=== PATIENT | male | born 1955 | race Caucasian/White ===

== ENCOUNTER 2016-09-20 16:46 | Inpatient (IN) | payer OTHER ==
[~2016-09-20] VITALS: Ht 170.2 cm; Wt 82.2 kg
[~2016-09-20 16:46] MED LIST: CALC500T67 PO; CICL160A INH; DOCU100C31 PO; DPKEC250 PO; DPKEC500 PO; FERR325T18 PO; IPRASOL4 NEB; MELA3TAB PO; NORT50CA PO; PRLSR20 PO; RISP2TAB3 PO
[2016-09-20] MEDS ORDERED: ACET-1256 PO (17:53)
[2016-09-20] MEDS ORDERED: SODIUM CHLORIDE 0.9% 500ML 500 ML IV STA (17:54)
--- NOTE | 2016-09-20 17:54 | DIAGNOSTIC IMAGING REPORT ---
CHEST ONE VIEW PORTABLE CLINICAL HISTORY: Chest Pain dyspnea COMPARISON STUDY: 12/30/2015 FINDINGS: Mild emphysematous change. No focal infiltrate. No evidence for cardiac enlargement. IMPRESSION: Mild emphysematous change. No acute process. Electronically signed by: Jakob Lang M.D. 09/20/2016 5:52 PM Dictated Date/Time: 09/20/2016 5:52 PM
[2016-09-20] MEDS ORDERED: CALC200T PO (18:01)
[2016-09-20 18:32] LABS: BASO % 0.1 %; BASO ABS # 0.01 K/uL (0-0.2); COMPLETE YES; EOS % 0.4 %; HEMATOCRIT 42.2 % (42-52); IG% 0.1 %; LYMPH % 14.7 %; MEAN CELL VOLUME 90.8 fL (80-100); MEAN CORPUSCULAR HEMOGLOBIN 31.2 pg (25-34); MEAN CORPUSCULAR HGB CONC 34.4 g/dl (32-36); MEAN PLATELET VOLUME 10.1 fL (7.4-10.4); NEUT % 76.7 %; PLATELET COUNT 157 K/uL (130-400); RED BLOOD COUNT 4.65 M/uL (4.7-6.1); WHITE BLOOD COUNT 7.48 K/uL (4.8-10.8)
[2016-09-20 18:42] LABS: BLOOD UREA NITROGEN 9 mg/dl (7-18); BUN/CREATININE RATIO 16.2 (10-20); CARBON DIOXIDE 33 mmol/L (21-32); CHLORIDE 94 mmol/L (98-107); CREATININE 0.55 mg/dl (0.60-1.40); GLUCOSE 88 mg/dl (70-99); POTASSIUM 5.4 mmol/L (3.5-5.1); SODIUM 133 mmol/L (136-145)
[2016-09-20 18:46] LABS: CKMB/CK RATIO 2.7 (0-3.0)
[2016-09-20] MEDS ORDERED: DOXYCYCLINE IV 100 MG in DEXTROSE 5% 100ML 100 ML IV STA (18:57)
[2016-09-20] MEDS ORDERED: LORAZEPAM 2 MG/ML 1 ML VIAL IV PRN (19:15)
[2016-09-20] MEDS ORDERED: ACETAMINOPHEN 325 MG TAB PO PRN ×2 (19:15)
[2016-09-20] MEDS ORDERED: ONDANSETRON INJ 2 MG/ML 2 ML VIAL IV PRN ×2 (19:15)
[2016-09-20] MEDS ORDERED: ZOLPIDEM TARTRATE 5 MG TAB PO PRN ×2 (19:15)
[2016-09-20] MEDS ORDERED: ALUMINUM/MAGNESIUM/SIMETH (MAALOX MAX) 30 ML UDC PO PRN (19:15)
[2016-09-20] MEDS ORDERED: DiphenhydrAMINE HCL 50 MG/ML VIAL IV PRN (19:15)
[2016-09-20] MEDS ORDERED: MAGNESIUM HYDROXIDE SUSP 30 ML UDC PO PRN (19:15)
[2016-09-20] MEDS ORDERED: PROMETHAZINE HCL INJ 12.5 MG in SODIUM CHLORIDE 0.9% 50ML 50 ML IV PRN (19:15)
--- NOTE | 2016-09-20 19:24 | History and Physical ---
History & Physical Date & Time of Service: Sep 20, 2016 at 19:15 Chief Complaint: Sob, Dizzy Primary Care Physician: Akilah SCHUSTER History of Present Illness Source: patient The patient is [facility] 61[facility] due to shortness of breath and dizziness. When EMS arrived at the senior care, his pulse ox was in the mid 70s, and en route received nebulizer treatment and was given Solu-Medrol. By the time he arrived in the emergency department his pulse ox was in the mid 90s his breathing is more comfortable at that time. He has not had any fevers or chills, he does report some chest congestion, but is not able to bring it up. He denies any palpitations. Past Medical/Surgical History Medical Problems: (1) Asthma Status: Chronic (2) Bipolar disorder Status: Chronic (3) COPD (chronic obstructive pulmonary disease) Status: Chronic (4) Seizures Status: Chronic Family History No significant family history Social History Smoking Status: Current Every Day Smoker Smokeless Tobacco Use: Yes Alcohol Use: none Drug Use: none Housing status: other Immunizations History of Influenza Vaccine: Unknown History of Tetanus Vaccine?: utd History of Pneumococcal: Unknown History of Hepatitis B Vaccine: Unknown Multi-Drug Resistant Organisms History of MDRO: No Allergies Coded Allergies: No Known Allergies (Verified , 10/08/08) Home Medications Scheduled Acetaminophen (Tylenol), 1,000 MG PO TID Calcium Carbonate-Vitamin D (Oscal 500/200 D-3), 1 TAB PO BID Ciclesonide (Alvesco), 1 PUFF INH BID Divalproex Sodium (Divalproex Sodium Dr), 1,000 MG PO BID Divalproex Sodium (Divalproex Sodium Dr), 250 MG PO HS Docusate Sodium (Docusate Sodium), 1 CAP PO BID Ferrous Gluconate (Ferrous Gluconate), 324 MG PO BID Nortriptyline (Pamelor), 50 MG PO HS Omeprazole (Prilosec), 20 MG PO DAILY Risperidone (Risperdal), 2 MG PO HS Scheduled PRN Ipratropium-Albuterol (Duoneb), 1 TREATMENT NEB QID PRN for SOB/Wheezing Review of Systems The patient denies chest pain, palpitations, lower extremity swelling, vision change, hearing change, sore throat, fevers, chills, sweats, weight change, fatigue, nausea, vomiting, abdominal pain, pelvic pain, blood in urine or stool , dysuria, urinary frequency or urgency, headache, memory loss, rash, abnormal bruising or bleeding, imbalance, focal or generalized weakness, numbness or tingling in arms or legs, arthralgias or myalgias, back or neck pain, night sweats, or allergy symptoms. The review of systems is otherwise negative other than for that already noted above, and at least 10 systems have been reviewed. Physical Exam Vital Signs Date Time Temp Pulse Resp B/P Pulse Ox O2 Delivery O2 Flow Rate FiO2 09/20/16 16:58 Nasal Cannula 4.0 09/20/16 16:57 73 09/20/16 16:53 37.2 72 26 122/77 90 Room Air 09/20/16 16:53 90 Room Air The patient is awake, well-developed and adequately nourished, alert and oriented 3, normocephalic and atraumatic, lying in bed and in no acute distress. HEENT--PERRL, EOMI, mucous membranes and oropharynx dry. Neck--supple, no JVD or bruits, thyroid normal, trachea midline, no adenopathy. Heart--normal S1 and S2, no extra beats, no murmurs, rubs or gallops. Lungs--few scattered rhonchi right greater than left, no respiratory distress, no accessory muscle use. Abdomen--normal bowel sounds and soft, nontender and nondistended, no hernias or masses, no organomegaly. Extremities--no cyanosis, clubbing or edema. There are good distal pulses b/l. Dermatologic--normal skin turgor, normal color, warm and dry, no abnormal lymph nodes, no rash. Neurologic--cranial nerves II through XII grossly intact, motor and sensory examination normal. Rheumatologic--normal range of motion, nontender, muscles and joints. Psychiatric--normal affect. Diagnostics Laboratory Results Results Past 24 Hours Test 09/20/16 17:25 09/20/16 17:29 Range/Units White Blood Count 7.48 4.8-10.8 K/uL Red Blood Count 4.65 4.7-6.1 M/uL Hemoglobin 14.5 14.0-18.0 g/dL Hematocrit 42.2 42-52 % Mean Corpuscular Volume 90.8 80-100 fL Mean Corpuscular Hemoglobin 31.2 25-34 pg Mean Corpuscular Hemoglobin Concent 34.4 32-36 g/dl Platelet Count 157 130-400 K/uL Mean Platelet Volume 10.1 7.4-10.4 fL Neutrophils (%) (Auto) 76.7 % Lymphocytes (%) (Auto) 14.7 % Monocytes (%) (Auto) 8.0 % Eosinophils (%) (Auto) 0.4 % Basophils (%) (Auto) 0.1 % Neutrophils # (Auto) 5.73 1.4-6.5 K/uL Lymphocytes # (Auto) 1.10 1.2-3.4 K/uL Monocytes # (Auto) 0.60 0.11-0.59 K/uL Eosinophils # (Auto) 0.03 0-0.5 K/uL Basophils # (Auto) 0.01 0-0.2 K/uL RDW Standard Deviation 48.7 36.4-46.3 fL RDW Coefficient of Variation 14.7 11.5-14.5 % Immature Granulocyte % (Auto) 0.1 % Immature Granulocyte # (Auto) 0.01 0.00-0.02 K/uL Sodium Level 133 136-145 mmol/L Potassium Level 5.4 3.5-5.1 mmol/L Chloride Level 94 98-107 mmol/L Carbon Dioxide Level 33 21-32 mmol/L Anion Gap 6.0 3-11 mmol/L Blood Urea Nitrogen 9 7-18 mg/dl Creatinine 0.55 0.60-1.40 mg/dl Est Creatinine Clear Calc Drug Dose 145.1 ml/min Estimated GFR () 130.4 Estimated GFR (Non- 112.5 BUN/Creatinine Ratio 16.2 10-20 Random Glucose 88 70-99 mg/dl Calcium Level 9.0 8.5-10.1 mg/dl Total Creatine Kinase 62 39-308 U/L Creatine Kinase MB 1.7 0.5-3.6 ng/ml Creatine Kinase MB Ratio 2.7 0-3.0 Troponin I < 0.015 0-0.045 ng/ml Valproic Acid (Depakene) Level 96 50-100 mcg/ml Bedside Lactic Acid Venous 1.79 0.90-1.70 mmol/L Microbiology Results 2/20/17 Blood Culture, Received Pending 09/20/16 Blood Culture, Received Pending Diagnostic Radiology Patient Name: FER MOREAU [id number] Unit Number: [id number] Dictated: 09/20/161751 Transcribed: 09/20/161751 MS Printed Date/Time: [~ rep prt dt]/[~ rep prt tm] [~ rep ct labl] - [~ rep ct ivnm] [facility] Radiology Department [place], [place] [id number] Dictated: 09/20/161751 Transcribed: 09/20/161751 MS Printed Date/Time: [~ rep prt dt]/[~ rep prt tm] [~ rep ct labl] - [~ rep ct ivnm] [~ rep ct add3]] CHEST ONE VIEW PORTABLE CLINICAL HISTORY: Chest Pain dyspnea COMPARISON STUDY: 12/30/2015 FINDINGS: Mild emphysematous change. No focal infiltrate. No evidence for cardiac enlargement. IMPRESSION: Mild emphysematous change. No acute process. Electronically signed by: Jakob Lang M.D. 09/20/2016 5:52 PM Dictated Date/Time: 09/20/2016 5:52 PM The status of this report is Signed. Draft = Not yet reviewed or approved by Radiologist. Signed = Reviewed and approved by Radiologist. <AttendingPhy></AttendingPhy> <FamilyPhy>Akilah SCHUSTER</FamilyPhy> <PrimaryPhy> Akilah SCHUSTER</PrimaryPhy> <UnitNumber>[id number]</UnitNumber> <VisitNumber> [id number]</VisitNumber> <PatientName>FER MOREAU [id number]</PatientName> < DateOfBirth>1955</DateOfBirth> <Location>C.EDB</Location> <ServiceDate></ServiceDate> <MNE>ESINDI</MNE> <OrderingPhy>Andi Osborn M.D.</ OrderingPhy> <OrderingPhyMNE>f rep ord mne</OrderingPhyMNE> <DictatingPhyMNE> f rep dict mne</DictatingPhyMNE> <CCListMNE>f rep ct mne</CCListMNE> < AdmittingPhyMNE>f pt admit dr lopes</AdmittingPhyMNE> <AttendingPhyMNE>f pt attend dr lopes</AttendingPhyMNE> <ConsultingPhyMNE>f pt consult dr lopes</ConsultingPhyMNE> <FamilyPhyMNE>f pt fam dr lopes</FamilyPhyMNE> <OtherPhyMNE>f pt other dr lopes</OtherPhyMNE> < PrimaryPhyMNE>f pt prim care dr lopes</PrimaryPhyMNE> <ReferringPhyMNE>f pt referring dr lopes</ReferringPhyMNE> EKG EKG shows normal sinus rhythm at 66 bpm, no acute ST-T changes, and no change compared to 05/24/2014. Impression Assessment and Plan COPD exacerbation with hypoxia and lactic acidosis--patient be admitted to the telemetry unit. He'll be placed on Ceftriaxone 1 g IV daily, levofloxacin 500 mg IV every 24 hours, Solu-Medrol 40 mg IV every 8 hours, guaifenesin extended release 600 mg by mouth twice a day, nasal cannula 2 L of oxygen titrating to keep pulse ox greater than or equal to 92%. Seizure disorder--continue divalproex 1000 mg by mouth twice a day and 10 mg by mouth at bedtime. Bipolar disorder/insomnia--continue nortriptyline 50 mg by mouth at bedtime and Risperdal 2 mg by mouth at bedtime. GERD--change omeprazole 20 mg by mouth daily to pantoprazole 40 mg by mouth daily. Level of Care Telemetry Advanced Directives Existing Advance Directive: No Existing Living Will: No Existing Power of Store Group Manager: No Resuscitation Status FULL RESUSCITATION VTE Prophylaxis VTE Risk Assessment Done? Y/N: Yes Risk Level: Moderate Given or contraindicated: SCD's
[2016-09-20] MEDS ORDERED: CEFTRIAXONE SOD INJ 1 GM ADDVIAL ONE (19:34)
[2016-09-20] MEDS ORDERED: LEVAQUIN 500MG / 100ML D5W ONE (20:46)
[2016-09-20] MEDS ORDERED: LEVALBUTEROL/IPRATROPIUM NEB INH SCH ×2 (21:00)
[2016-09-20] MEDS ORDERED: DOCUSATE SODIUM 100 MG CAP PO SCH (21:00)
[2016-09-20 21:46] VITALS: BP 113/76; PULSE 79; TEMP 37; O2SAT 92; Ht 170.2 cm; Wt 82.2 kg
[2016-09-20] MEDS ORDERED: METHYLPREDNISOLONE IV 40 MG in SYRINGE 0 ML IV SCH (22:00)
--- NOTE | 2016-09-20 22:25 | EMERGENCY ROOM VISIT NOTE ---
History Report prepared by Ankita: Jeanette Umanzor Under the Supervision of: Dr. Andi Osborn M.D. First contact with patient: 16:50 Stated Complaint: SOB, DIZZY History of Present Illness The patient is a 61 year old male who presents to the Emergency Room with complaints of constant shortness of breath for the past week. The patient is a prisoner and guards were altered to his symptoms today. The patient was found to be at 76% on room air. EMS arrived and gave the patient a DuoNeb treatment as well as albuterol and Solu-Medrol. He is now in the high 90s on room air. The patient is a smoker. He also reports some dizziness. Source of History: patient, EMS Onset: 1 week ago Position: chest Symptom Intensity: O2 76% on room air Quality: other (SOB) Timing: constant Modifying Factors (Relieving): other (DuoNeb, Solu-Medrol, Albuterol) Review of Systems See HPI for pertinent positives & negatives. A total of 10 systems reviewed and were otherwise negative. Past Medical & Surgical Medical Problems: (1) Asthma (2) Bipolar disorder (3) COPD (chronic obstructive pulmonary disease) (4) COPD exacerbation (5) Seizures Family History No significant family history Social History Smoking Status: Current Every Day Smoker Alcohol Use: none Drug Use: none Housing Status: other (incarcerated) Occupation Status: other (incarcerated) Current/Historical Medications Scheduled Acetaminophen (Tylenol), 1,000 MG PO TID Calcium Carbonate-Vitamin D (Oscal 500/200 D-3), 1 TAB PO BID Ciclesonide (Alvesco), 1 PUFF INH BID Divalproex Sodium (Divalproex Sodium Dr), 1,000 MG PO BID Divalproex Sodium (Divalproex Sodium Dr), 250 MG PO HS Docusate Sodium (Docusate Sodium), 1 CAP PO BID Ferrous Gluconate (Ferrous Gluconate), 324 MG PO BID Nortriptyline (Pamelor), 50 MG PO HS Omeprazole (Prilosec), 20 MG PO DAILY Risperidone (Risperdal), 2 MG PO HS Scheduled PRN Ipratropium-Albuterol (Duoneb), 1 TREATMENT NEB QID PRN for SOB/Wheezing Allergies Coded Allergies: No Known Allergies (Verified , 10/08/08) Physical Exam Vital Signs Date Time Temp Pulse Resp B/P Pulse Ox O2 Delivery O2 Flow Rate FiO2 09/20/16 19:00 74 12 122/77 95 4.0 09/20/16 16:58 Nasal Cannula 4.0 09/20/16 16:57 73 09/20/16 16:53 37.2 72 26 122/77 90 Room Air 09/20/16 16:53 90 Room Air Physical Exam GENERAL: Patient is chronically unwell appearing and in no acute distress. HEENT: No acute trauma, normocephalic atraumatic, mucous membranes moist, no nasal congestion, no scleral icterus. NECK: No stridor, no adenopathy, no meningismus, trachea is midline. LUNGS: Crackles and decreased breath sounds throughout the right lobe, mild wheezing throughout the left. HEART: Regular rate and rhythm. No murmurs, rubs, gallops appreciated. ABDOMEN: Soft, nontender, bowel sounds positive, no masses appreciated, no peritonitis. BACK: No midline tenderness, no CVA tenderness EXTREMITIES: Normal motion all extremities, no cyanosis, no edema. NEUROLOGIC: Alert and oriented, no acute motor or sensory deficits, no focal weakness, cranial nerves grossly intact. SKIN: No rash, no jaundice, no diaphoresis. Medical Decision & Procedures ER Provider Diagnostic Interpretation: Radiology results and stated below per my review and radiologist interpretation: CHEST ONE VIEW PORTABLE CLINICAL HISTORY: Chest Pain dyspnea COMPARISON STUDY: 12/30/2015 FINDINGS: Mild emphysematous change. No focal infiltrate. No evidence for cardiac enlargement. IMPRESSION: Mild emphysematous change. No acute process. Electronically signed by: Jakob Lang M.D. 09/20/2016 5:52 PM Dictated Date/Time: 09/20/2016 5:52 PM Laboratory Results 09/20/16 17:25 Red Blood Count 4.65, Mean Corpuscular Volume 90.8, Mean Corpuscular Hemoglobin 31.2, Mean Corpuscular Hemoglobin Concent 34.4, Mean Platelet Volume 10.1, Neutrophils (%) (Auto) 76.7, Lymphocytes (%) (Auto) 14.7, Monocytes (%) (Auto) 8.0, Eosinophils (%) (Auto) 0.4, Basophils (%) (Auto) 0.1, Neutrophils # (Auto) 5.73, Lymphocytes # (Auto) 1.10, Monocytes # (Auto) 0.60, Eosinophils # (Auto) 0.03, Basophils # (Auto) 0.01 09/20/16 17:25 Test 09/20/16 17:25 09/20/16 17:29 White Blood Count 7.48 K/uL (4.8-10.8) Red Blood Count 4.65 M/uL (4.7-6.1) Hemoglobin 14.5 g/dL (14.0-18.0) Hematocrit 42.2 % (42-52) Mean Corpuscular Volume 90.8 fL (80-100) Mean Corpuscular Hemoglobin 31.2 pg (25-34) Mean Corpuscular Hemoglobin Concent 34.4 g/dl (32-36) Platelet Count 157 K/uL (130-400) Mean Platelet Volume 10.1 fL (7.4-10.4) Neutrophils (%) (Auto) 76.7 % Lymphocytes (%) (Auto) 14.7 % Monocytes (%) (Auto) 8.0 % Eosinophils (%) (Auto) 0.4 % Basophils (%) (Auto) 0.1 % Neutrophils # (Auto) 5.73 K/uL (1.4-6.5) Lymphocytes # (Auto) 1.10 K/uL (1.2-3.4) Monocytes # (Auto) 0.60 K/uL (0.11-0.59) Eosinophils # (Auto) 0.03 K/uL (0-0.5) Basophils # (Auto) 0.01 K/uL (0-0.2) RDW Standard Deviation 48.7 fL (36.4-46.3) RDW Coefficient of Variation 14.7 % (11.5-14.5) Immature Granulocyte % (Auto) 0.1 % Immature Granulocyte # (Auto) 0.01 K/uL (0.00-0.02) Anion Gap 6.0 mmol/L (3-11) Est Creatinine Clear Calc Drug Dose 145.1 ml/min Estimated GFR () 130.4 Estimated GFR (Non- 112.5 BUN/Creatinine Ratio 16.2 (10-20) Calcium Level 9.0 mg/dl (8.5-10.1) Total Creatine Kinase 62 U/L (39-308) Creatine Kinase MB 1.7 ng/ml (0.5-3.6) Creatine Kinase MB Ratio 2.7 (0-3.0) Troponin I < 0.015 ng/ml (0-0.045) Valproic Acid (Depakene) Level 96 mcg/ml (50-100) Bedside Lactic Acid Venous 1.79 mmol/L (0.90-1.70) Laboratory results as reviewed by me. Medications Administered Medications (Trade) Dose Ordered Sig/Padmini Route Start Time Stop Time Status Last Admin Dose Admin Sodium Chloride 500 ml @ 999 mls/hr Q31M STAT IV 09/20/16 17:54 09/20/16 18:24 DC 09/20/16 18:02 999 MLS/HR Doxycycline Hyclate/Dextrose (Vibramycin IV/ D5 100ml) 110 ml @ 50 mls/hr NOW STAT IV 09/20/16 18:57 09/20/16 21:08 DC 09/20/16 19:09 50 MLS/HR ECG Indication: SOB/dyspnea Rate (beats per minute): 66 Rhythm: normal sinus Findings: no acute ischemic change, no ectopy ED Course 1649: The patient was evaluated in room B5. A complete history and physical exam was performed. 1754: NSS 500 ml @ 999 mls/hr IV 1856: Doxycycline Hyclate 100 mg/Dextrose 110 ml @ 50 mls/hr IV 1923: I reassessed the patient at this time. He is resting comfortably. I discussed the results and treatment plan with the patient. I answered all pertaining questions that he had. He expressed understanding and verbalized agreement. 1930: I spoke with Dr. Willard. We discussed the patients results and treatment plan. The patient will be evaluated by the [facility] for further management. Medical Decision Differential: Infectious, Reactive Airway Disease, Pneumonia, Pneumothorax, COPD , CHF, ACS, Pulmonary Embolism, MSK, GI, Dissection, amongst other etiologies entertained. 61 yr old male arrives with acute shortness of breath from snf. Long history of COPD with periodic exacerbations and his exam is consistent with this. Initially after EMS nebs his O2 doing well on RA though after short while desaturating requiring 4 L NC to maintain sats. CXR clear and labs look OK. With worsening hypoxia and clearly poor lung exam will bring in for acute COPD exacerbation. No clear evidence of pneumonia thus will do IV doxy. With his history and exam I feel that PE and dissection are low likelihood. No evidence ACS. Consults Time Called: 1927 Consulting Physician: Dr. Willard Returned Call: [address] Willard. We discussed the patients results and treatment plan. The patient will be evaluated by the [facility] for further management. Impression Primary Impression: COPD exacerbation Additional Impression: Hypoxia Scribe Attestation The scribe's documentation has been prepared under my direction and personally reviewed by me in its entirety. I confirm that the note above accurately reflects all work, treatment, procedures, and medical decision making performed by me. Departure Information Dispostion Being Evaluated By Hospitalist Referrals Akilah SCHUSTER (PCP) Problem Qualifiers
[2016-09-20] MEDS: IPRATROPIUM BROMIDE NEB SOLN 0.02% 2.5 ML VIAL INH SCH (23:20)
[2016-09-20] MEDS: LEVALBUTEROL 1.25MG/0.5ML NEB INH SCH (23:20)
[2016-09-21] VITALS (11 sets, daily range): BP systolic 95–122; BP diastolic 61–68; PULSE 73–92; TEMP 36.2–37.4; O2SAT 89–97
[2016-09-21] MEDS: DIVALPROEX SODIUM 250 MG DELAY REL TAB PO SCH ×2 (00:20→20:43)
[2016-09-21] MEDS: DIVALPROEX SODIUM 500 MG DELAY RELEASE TAB PO SCH ×3 (00:20→20:44)
[2016-09-21] MEDS: ACETAMINOPHEN 500 MG TAB PO SCH ×4 (00:20→20:47)
[2016-09-21] MEDS: CALCIUM 600MG + VIT D 400 IU TAB PO SCH ×3 (00:21→20:42)
[2016-09-21] MEDS: RISPERIDONE 2 MG TAB PO SCH ×2 (00:21→20:46)
[2016-09-21] MEDS: NORTRIPTYLINE HCL 25 MG CAP PO SCH ×2 (00:21→20:45)
[2016-09-21] MEDS: DOCUSATE SODIUM 100 MG CAP PO SCH ×3 (00:21→20:43)
[2016-09-21] MEDS: GUAIFENESIN 600 MG TABCR PO SCH ×3 (00:21→20:45)
[2016-09-21] MEDS: FERROUS GLUCONATE 324 MG TAB PO SCH ×3 (00:21→20:45)
[2016-09-21] MEDS: IPRATROPIUM BROMIDE NEB SOLN 0.02% 2.5 ML VIAL INH SCH ×4 (03:00→19:16)
[2016-09-21] MEDS: LEVALBUTEROL 1.25MG/0.5ML NEB INH SCH ×4 (03:00→19:16)
[2016-09-21] MEDS: METHYLPREDNISOLONE IV 40 MG in SYRINGE 0 ML IV SCH ×4 (06:04→22:07)
[2016-09-21 06:24] LABS: COMPLETE YES; HEMATOCRIT 40.6 % (42-52); IG% 0.2 %; LYMPH % 21.5 %; LYMPH ABS # 0.92 K/uL (1.2-3.4); MEAN CORPUSCULAR HGB CONC 34.5 g/dl (32-36); MEAN PLATELET VOLUME 9.8 fL (7.4-10.4); MONO % 4.7 %; NEUT % 73.6 %; PLATELET COUNT 147 K/uL (130-400); RED BLOOD COUNT 4.51 M/uL (4.7-6.1); WHITE BLOOD COUNT 4.27 K/uL (4.8-10.8)
[2016-09-21 07:05] LABS: CALCIUM 8.8 mg/dl (8.5-10.1); CREATININE 0.55 mg/dl (0.60-1.40); MAGNESIUM 1.8 mg/dl (1.8-2.4); POTASSIUM 4.5 mmol/L (3.5-5.1)
[2016-09-21] MEDS ORDERED: PNEUMOCOCCAL POLYSACCHARIDES 25 MCG/0.5 ML VIAL/SYR IM. ONE (08:00)
[2016-09-21] MEDS ORDERED: INFLUENZA ADMINISTRATION CHARGE ONE (08:00)
[2016-09-21] MEDS ORDERED: INFLUENZA VIRUS QUAD VACCINE 0.5 ML SYR IM. ONE (08:00)
[2016-09-21] MEDS ORDERED: PNEUMOCOCCAL ADMINISTRATION CHARGE ONE (08:00)
[2016-09-21] MEDS: PANTOprazole SOD 40 MG TAB PO SCH (09:01)
[2016-09-21] MEDS ORDERED: POLYETHYLENE (MIRALAX) 17 GM PACK PO PRN (14:15)
--- NOTE | 2016-09-21 14:20 | Progress Note ---
Subjective Date of Service: Sep 21, 2016. Subjective Pt evaluation today including: conversation w/ patient, physical exam, chart review, lab review, review of studies, review of inpatient medication list Feeling better in sob, still some wheezing when he talk, and eating drinking okay, has no bowel movement for several days, generally feeling better Problem List Medical Problems: (1) Hypoxia Status: Acute Review of Systems Constitutional: + fatigue, No chills, No fever, No problem reported, No sweats , No weakness, No weight loss Eyes: No diplopia, No discharge, No eye pain, No redness, No worsening of vision ENT: No dental problems, No hearing loss, No nasal symptoms, No sore throat, No tinnitus, No trouble swallowing, No unusual epistaxis Respiratory: + cough, + shortness of breath, No dyspnea at rest, No dyspnea on exertion, No hemoptysis, No sputum, No wheezing Cardiac: No PND, No chest pain, No claudication, No edema, No orthopnea, No palpitations Abdomen: + constipation, No diarrhea, No nausea, No pain, No vomiting Musculoskeletal: No calf pain, No joint pain, No muscle pain, No swelling Male : No dysuria, No hematuria, No incontinence, No nocturia more than once/ night, No slowing stream, No urinary frequency Neurologic: No balance problems, No memory loss, No numbness/tingling, No paralysis, No vertigo, No weakness Psychiatric: No anhedonism, No anxiety, No depression symptoms, No insomnia, No substance abuse Heme: No abnormal bleeding/bruising, No clotting problems, No night sweats, No swollen lymph nodes Endo: No excessive thirst, No excessive urination, No fatigue Skin: No bleeding, No color change, No itch, No new/changing skin lesions, No rash Objective Vital Signs Date Time Temp Pulse Resp B/P Pulse Ox O2 Delivery O2 Flow Rate FiO2 09/21/16 12:08 92 Nasal Cannula 5.0 09/21/16 12:00 86 18 122/68 92 Nasal Cannula 5.0 09/21/16 12:00 Nasal Cannula 5.0 09/21/16 11:28 36.2 73 16 110/67 90 Nasal Cannula 5.0 09/21/16 08:00 Nasal Cannula 4.0 09/21/16 07:31 76 09/21/16 07:24 79 16 97 Nasal Cannula 5.0 09/21/16 05:10 86 09/21/16 04:00 Nasal Cannula 4.0 09/21/16 04:00 36.4 85 18 95/61 90 Nasal Cannula 4.0 09/21/16 02:03 79 09/20/16 22:23 73 09/20/16 21:46 37.0 79 18 113/76 92 Nasal Cannula 4.0 09/20/16 19:00 74 12 122/77 95 4.0 09/20/16 16:58 Nasal Cannula 4.0 09/20/16 16:57 73 09/20/16 16:53 37.2 72 26 122/77 90 Room Air 09/20/16 16:53 90 Room Air Physical Exam General Appearance: WD/WN, no apparent distress, + thin, + pertinent finding ( frail chronically ill-looking, ) Eyes: normal inspection, PERRL, EOMI, sclerae normal ENT: normal ENT inspection, hearing grossly normal, pharynx normal Neck: supple, no adenopathy, thyroid normal, no JVD, no carotid bruits, trachea midline Respiratory/Chest: normal breath sounds, no respiratory distress, no accessory muscle use, + decreased breath sounds, + rales, + wheezing (occasional) Cardiovascular: regular rate, rhythm, no edema, no gallop, no JVD, no murmur Abdomen: normal bowel sounds, non tender, soft, no organomegaly, no pulsatile mass Extremities: normal range of motion, non-tender, normal inspection, no pedal edema, no calf tenderness, normal capillary refill, pelvis stable Neurologic/Psychiatric: greens cutter II-XII nml as tested, no motor/sensory deficits, alert, normal mood/affect, oriented x 3 Skin: normal color, warm/dry, no rash Lymphatic: no adenopathy Laboratory Results Last 24 Hours Test 09/20/16 17:25 09/20/16 17:29 09/21/16 06:15 White Blood Count 7.48 K/uL 4.27 K/uL Red Blood Count 4.65 M/uL 4.51 M/uL Hemoglobin 14.5 g/dL 14.0 g/dL Hematocrit 42.2 % 40.6 % Mean Corpuscular Volume 90.8 fL 90.0 fL Mean Corpuscular Hemoglobin 31.2 pg 31.0 pg Mean Corpuscular Hemoglobin Concent 34.4 g/dl 34.5 g/dl Platelet Count 157 K/uL 147 K/uL Mean Platelet Volume 10.1 fL 9.8 fL Neutrophils (%) (Auto) 76.7 % 73.6 % Lymphocytes (%) (Auto) 14.7 % 21.5 % Monocytes (%) (Auto) 8.0 % 4.7 % Eosinophils (%) (Auto) 0.4 % 0.0 % Basophils (%) (Auto) 0.1 % 0.0 % Neutrophils # (Auto) 5.73 K/uL 3.14 K/uL Lymphocytes # (Auto) 1.10 K/uL 0.92 K/uL Monocytes # (Auto) 0.60 K/uL 0.20 K/uL Eosinophils # (Auto) 0.03 K/uL 0.00 K/uL Basophils # (Auto) 0.01 K/uL 0.00 K/uL RDW Standard Deviation 48.7 fL 48.3 fL RDW Coefficient of Variation 14.7 % 14.7 % Immature Granulocyte % (Auto) 0.1 % 0.2 % Immature Granulocyte # (Auto) 0.01 K/uL 0.01 K/uL Sodium Level 133 mmol/L 133 mmol/L Potassium Level 5.4 mmol/L 4.5 mmol/L Chloride Level 94 mmol/L 97 mmol/L Carbon Dioxide Level 33 mmol/L 28 mmol/L Anion Gap 6.0 mmol/L 8.0 mmol/L Blood Urea Nitrogen 9 mg/dl 12 mg/dl Creatinine 0.55 mg/dl 0.55 mg/dl Est Creatinine Clear Calc Drug Dose 145.1 ml/min 145.1 ml/min Estimated GFR () 130.4 130.4 Estimated GFR (Non- 112.5 112.5 BUN/Creatinine Ratio 16.2 22.0 Random Glucose 88 mg/dl 108 mg/dl Calcium Level 9.0 mg/dl 8.8 mg/dl Total Creatine Kinase 62 U/L Creatine Kinase MB 1.7 ng/ml Creatine Kinase MB Ratio 2.7 Troponin I < 0.015 ng/ml Valproic Acid (Depakene) Level 96 mcg/ml Bedside Lactic Acid Venous 1.79 mmol/L Magnesium Level 1.8 mg/dl Assessment and Plan 61-year-old admitted on 09/20/2016 because of COPD exacerbation COPD exacerbation with hypoxia and lactic acidosis 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 and resp failure Possible sepsis place on hypoxia and lactic acidosis, respiratory rate up to 26 , systolic blood pressure and 96, Qsafa>2 Stable and improving Continue telemetry unit. Continue Ceftriaxone 1 g IV daily, levofloxacin 500 mg IV every 24 hours, Solu- Medrol 40 mg IV every 8 hours, guaifenesin extended release 600 mg by mouth twice a day, nasal cannula 2 L of oxygen titrating to keep pulse ox greater than or equal to 92%. History of Seizure disorder ontinue divalproex 1000 mg by mouth twice a day and 10 mg by mouth at bedtime. History of Bipolar disorder/insomnia continue nortriptyline 50 mg by mouth at bedtime and Risperdal 2 mg by mouth at bedtime. GERD--change omeprazole 20 mg by mouth daily to pantoprazole 40 mg by mouth daily. Constipation will give Colace twice a day GI and DVT prophylaxis Continued [facility] stay due to: multiple IV medications needed Discharge planning: home
[2016-09-21] MEDS ORDERED: POLYETHYLENE (MIRALAX) 17 GM PACK PO ONE (14:30)
[2016-09-21 15:15] LABS: INR 1.1 (0.9-1.1); PARTIAL THROMBOPLASTIN RATIO 1.2; PROTHROMBIN TIME (PATIENT) 11.5 SECONDS (9.0-12.0)
[2016-09-21] MEDS ORDERED: CEFTRIAXONE SOD INJ 1 GM in DEXTROSE 5% ADD-VANTAGE 50ML 50 ML IV SCH (20:00)
[2016-09-21] MEDS ORDERED: LEVOFLOXACIN / D5W 500 MG in PREMIXED IN D5W 100 ML IV SCH (21:00)
[2016-09-22] VITALS (16 sets, daily range): BP systolic 114–137; BP diastolic 63–75; PULSE 61–95; TEMP 36.6–36.9; O2SAT 90–98
[2016-09-22] MEDS: IPRATROPIUM BROMIDE NEB SOLN 0.02% 2.5 ML VIAL INH SCH ×4 (02:50→19:41)
[2016-09-22] MEDS: LEVALBUTEROL 1.25MG/0.5ML NEB INH SCH ×4 (02:50→19:41)
[2016-09-22] MEDS: METHYLPREDNISOLONE IV 40 MG in SYRINGE 0 ML IV SCH (05:59)
[2016-09-22 06:01] LABS: COMPLETE YES; IG% 0.1 %; LYMPH % 9.4 %; LYMPH ABS # 0.84 K/uL (1.2-3.4); MEAN CELL VOLUME 90.5 fL (80-100); MEAN CORPUSCULAR HEMOGLOBIN 30.7 pg (25-34); MEAN CORPUSCULAR HGB CONC 33.9 g/dl (32-36); MEAN PLATELET VOLUME 10.2 fL (7.4-10.4); MONO % 3.5 %; PLATELET COUNT 144 K/uL (130-400); WHITE BLOOD COUNT 8.96 K/uL (4.8-10.8)
[2016-09-22 06:33] LABS: BUN/CREATININE RATIO 22.6 (10-20); CALCIUM 8.5 mg/dl (8.5-10.1); CREATININE 0.66 mg/dl (0.60-1.40); MAGNESIUM 1.7 mg/dl (1.8-2.4); POTASSIUM 4.6 mmol/L (3.5-5.1)
[2016-09-22] MEDS ORDERED: MAGNESIUM SULFATE 1GM / D5W 1 GM in PREMIXED IN D5W 100 ML IV ONE (07:30)
[2016-09-22] MEDS: FERROUS GLUCONATE 324 MG TAB PO SCH ×2 (09:10→21:11)
[2016-09-22] MEDS: DOCUSATE SODIUM 100 MG CAP PO SCH ×2 (09:10→21:11)
[2016-09-22] MEDS: DIVALPROEX SODIUM 500 MG DELAY RELEASE TAB PO SCH ×2 (09:10→21:13)
[2016-09-22] MEDS: GUAIFENESIN 600 MG TABCR PO SCH ×2 (09:10→21:11)
[2016-09-22] MEDS: CALCIUM 600MG + VIT D 400 IU TAB PO SCH ×2 (09:10→21:11)
[2016-09-22] MEDS: PANTOprazole SOD 40 MG TAB PO SCH (09:10)
[2016-09-22] MEDS: MAGNESIUM OXIDE 400 MG TAB PO SCH ×2 (09:10→21:12)
[2016-09-22] MEDS: ACETAMINOPHEN 500 MG TAB PO SCH ×3 (09:11→21:12)
[2016-09-22] MEDS: ENOXAPARIN 40 MG/0.4 ML SYR SQ SCH (09:12)
--- NOTE | 2016-09-22 14:34 | Progress Note ---
Subjective Date of Service: Sep 22, 2016. Subjective Pt evaluation today including: conversation w/ patient, conversation w/ family , physical exam, chart review, lab review, review of studies, conversation w/ energy consultant, review of inpatient medication list Patient reports shortness of breath is a little bit better, still some cough and wheezing, no other complaint Problem List Medical Problems: (1) Hypoxia Status: Acute Review of Systems Constitutional: No chills, No fatigue, No fever, No problem reported, No sweats , No weakness, No weight loss Eyes: No diplopia, No discharge, No eye pain, No redness, No worsening of vision ENT: No dental problems, No hearing loss, No nasal symptoms, No sore throat, No tinnitus, No trouble swallowing, No unusual epistaxis Respiratory: + cough, + see HPI, + wheezing, No dyspnea at rest, No dyspnea on exertion, No hemoptysis, No shortness of breath, No sputum Cardiac: No PND, No chest pain, No claudication, No edema, No orthopnea, No palpitations Abdomen: No constipation, No diarrhea, No nausea, No pain, No vomiting Musculoskeletal: No calf pain, No joint pain, No muscle pain, No swelling Male : No dysuria, No hematuria, No incontinence, No nocturia more than once/ night, No slowing stream, No urinary frequency Neurologic: No balance problems, No memory loss, No numbness/tingling, No paralysis, No vertigo, No weakness Psychiatric: No anhedonism, No anxiety, No depression symptoms, No insomnia, No substance abuse Heme: No abnormal bleeding/bruising, No clotting problems, No night sweats, No swollen lymph nodes Endo: No excessive thirst, No excessive urination, No fatigue Skin: No bleeding, No color change, No itch, No new/changing skin lesions, No rash Objective Vital Signs Date Time Temp Pulse Resp B/P Pulse Ox O2 Delivery O2 Flow Rate FiO2 09/22/16 13:21 94 3.0 09/22/16 12:00 98 Nasal Cannula 4.0 09/22/16 11:30 36.8 82 20 119/63 90 Nasal Cannula 4.0 09/22/16 10:22 Nasal Cannula 4.0 09/22/16 08:00 98 Nasal Cannula 4.0 09/22/16 07:28 36.6 63 20 131/64 98 Nasal Cannula 5.0 09/22/16 07:24 36.6 70 16 133/73 90 Nasal Cannula 5.0 09/22/16 06:45 61 16 91 Nasal Cannula 5.0 09/22/16 04:00 36.9 80 20 115/66 90 Nasal Cannula 5.0 09/22/16 04:00 90 Nasal Cannula 5.0 09/22/16 02:50 85 16 93 Nasal Cannula 5.0 09/22/16 00:01 92 Nasal Cannula 5.0 09/21/16 23:00 37.2 92 20 111/64 92 Nasal Cannula 5.0 09/21/16 20:00 90 Nasal Cannula 4.0 09/21/16 19:49 37.4 79 20 105/61 90 Nasal Cannula 4.0 09/21/16 19:16 90 16 89 Nasal Cannula 4.0 09/21/16 16:00 Nasal Cannula 4.0 09/21/16 15:41 36.8 78 18 105/66 90 Nasal Cannula 4.0 Physical Exam General Appearance: WD/WN, no apparent distress, + thin Eyes: normal inspection, PERRL, EOMI, sclerae normal ENT: normal ENT inspection, hearing grossly normal, pharynx normal Neck: supple, no adenopathy, thyroid normal, no JVD, no carotid bruits, trachea midline Respiratory/Chest: chest non-tender, normal breath sounds, no respiratory distress, no accessory muscle use, + decreased breath sounds (significant), + wheezing (occasional) Cardiovascular: regular rate, rhythm, no edema, no gallop, no JVD, no murmur Abdomen: normal bowel sounds, non tender, soft, no organomegaly, no pulsatile mass Extremities: normal range of motion, non-tender, normal inspection, no pedal edema, no calf tenderness, normal capillary refill, pelvis stable 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, no motor/sensory deficits, alert, normal mood/affect, oriented x 3 Skin: normal color, warm/dry, no rash Lymphatic: no adenopathy Laboratory Results Last 24 Hours Test 09/21/16 14:50 09/22/16 05:15 Prothrombin Time 11.5 SECONDS Prothromb Time International Ratio 1.1 Activated Partial Thromboplast Time 30.6 SECONDS Partial Thromboplastin Ratio 1.2 White Blood Count 8.96 K/uL Red Blood Count 4.20 M/uL Hemoglobin 12.9 g/dL Hematocrit 38.0 % Mean Corpuscular Volume 90.5 fL Mean Corpuscular Hemoglobin 30.7 pg Mean Corpuscular Hemoglobin Concent 33.9 g/dl Platelet Count 144 K/uL Mean Platelet Volume 10.2 fL Neutrophils (%) (Auto) 87.0 % Lymphocytes (%) (Auto) 9.4 % Monocytes (%) (Auto) 3.5 % Eosinophils (%) (Auto) 0.0 % Basophils (%) (Auto) 0.0 % Neutrophils # (Auto) 7.80 K/uL Lymphocytes # (Auto) 0.84 K/uL Monocytes # (Auto) 0.31 K/uL Eosinophils # (Auto) 0.00 K/uL Basophils # (Auto) 0.00 K/uL RDW Standard Deviation 49.7 fL RDW Coefficient of Variation 15.1 % Immature Granulocyte % (Auto) 0.1 % Immature Granulocyte # (Auto) 0.01 K/uL Sodium Level 136 mmol/L Potassium Level 4.6 mmol/L Chloride Level 97 mmol/L Carbon Dioxide Level 31 mmol/L Anion Gap 8.0 mmol/L Blood Urea Nitrogen 15 mg/dl Creatinine 0.66 mg/dl Est Creatinine Clear Calc Drug Dose 120.6 ml/min Estimated GFR () 120.9 Estimated GFR (Non- 104.3 BUN/Creatinine Ratio 22.6 Random Glucose 106 mg/dl Calcium Level 8.5 mg/dl Magnesium Level 1.7 mg/dl Assessment and Plan 61-year-old admitted on 09/20/2016 because of COPD exacerbation COPD exacerbation with hypoxia and lactic acidosis, stable and improving 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 and resp failure Possible sepsis place on hypoxia and lactic acidosis, respiratory rate up to 26 , systolic blood pressure and 96, Qsafa>2 upon admission, stable and improving Has been on Ceftriaxone 1 g IV daily, levofloxacin 500 mg IV every 24 hours, will change to Levaquin oral for total 7 days Has been on Solu-Medrol 40 mg IV every 8 hours, will change to prednisone by mouth 40 twice a day History of Seizure disorder continue divalproex 1000 mg by mouth twice a day and 10 mg by mouth at bedtime. History of Bipolar disorder/insomnia continue nortriptyline 50 mg by mouth at bedtime and Risperdal 2 mg by mouth at bedtime. GERD--change omeprazole 20 mg by mouth daily to pantoprazole 40 mg by mouth daily. Constipation will give Colace twice a day Med surgeon plan discharge tomorrow GI and DVT prophylaxis Continued [facility] stay due to: multiple IV medications needed Discharge planning: home
[2016-09-22] MEDS ORDERED: LEVOFLOXACIN 750 MG TAB PO SCH (18:00)
[2016-09-22] MEDS: RISPERIDONE 2 MG TAB PO SCH (21:10)
[2016-09-22] MEDS: NORTRIPTYLINE HCL 25 MG CAP PO SCH (21:11)
[2016-09-22] MEDS: DIVALPROEX SODIUM 250 MG DELAY REL TAB PO SCH (21:13)
[2016-09-23] MEDS: LEVALBUTEROL 1.25MG/0.5ML NEB INH SCH ×2 (01:36→07:08)
[2016-09-23] MEDS: IPRATROPIUM BROMIDE NEB SOLN 0.02% 2.5 ML VIAL INH SCH ×2 (01:36→07:08)
[2016-09-23 06:59] VITALS: BP 98/57; PULSE 99; TEMP 36.7; O2SAT 92
[2016-09-23 07:08] VITALS: PULSE 67; O2SAT 92
[2016-09-23 07:16] LABS: COMPLETE YES; HEMATOCRIT 40.6 % (42-52); IG% 0.3 %; LYMPH % 15.4 %; LYMPH ABS # 1.17 K/uL (1.2-3.4); MEAN CELL VOLUME 92.5 fL (80-100); MEAN CORPUSCULAR HGB CONC 33.5 g/dl (32-36); MEAN PLATELET VOLUME 10.6 fL (7.4-10.4); MONO % 3.6 %; NEUT % 80.7 %; PLATELET COUNT 156 K/uL (130-400); RED BLOOD COUNT 4.39 M/uL (4.7-6.1)
[2016-09-23 07:53] LABS: BUN/CREATININE RATIO 19.9 (10-20); CALCIUM 8.5 mg/dl (8.5-10.1); CREATININE 0.67 mg/dl (0.60-1.40); MAGNESIUM 1.8 mg/dl (1.8-2.4); POTASSIUM 4.7 mmol/L (3.5-5.1)
[2016-09-23] MEDS: CALCIUM 600MG + VIT D 400 IU TAB PO SCH (08:18)
[2016-09-23] MEDS: DOCUSATE SODIUM 100 MG CAP PO SCH (08:18)
[2016-09-23] MEDS: DIVALPROEX SODIUM 500 MG DELAY RELEASE TAB PO SCH (08:19)
[2016-09-23] MEDS: GUAIFENESIN 600 MG TABCR PO SCH (08:19)
[2016-09-23] MEDS: FERROUS GLUCONATE 324 MG TAB PO SCH (08:19)
[2016-09-23] MEDS: MAGNESIUM OXIDE 400 MG TAB PO SCH (08:19)
[2016-09-23] MEDS: PANTOprazole SOD 40 MG TAB PO SCH (08:19)
[2016-09-23] MEDS: ACETAMINOPHEN 500 MG TAB PO SCH (08:20)
[2016-09-23] MEDS: ENOXAPARIN 40 MG/0.4 ML SYR SQ SCH (08:20)
--- NOTE | 2016-09-23 09:46 | DIAGNOSTIC IMAGING REPORT ---
LEFT HUMERUS 2 VIEWS HISTORY: Left arm pain. COMPARISON: Left humerus 02/03/2016. FINDINGS: The bones are osteopenic. Interval healing of the left humeral neck/head fracture. The fracture remains slightly angulated. No acute fracture or dislocation within the left humerus. Soft tissues are unremarkable. No radiopaque foreign bodies. IMPRESSION: Healed left humeral neck/head fracture. No acute fracture or dislocation within the left humerus. Electronically signed by: New Gamino M.D. 09/23/2016 9:44 AM Dictated Date/Time: 09/23/2016 9:43 AM
[2016-09-23] MEDS ORDERED: MGNO400 PO (10:09)
[2016-09-23] MEDS ORDERED: LVQ750 PO (10:09)
[2016-09-23] MEDS ORDERED: PRD20 PO (10:09)
--- NOTE | 2016-09-23 10:10 | Discharge Instructions ---
Discharge Instructions Admission Reason for Admission: Copd Exacerbation Discharge Discharge Diagnosis / Problem: copd exac, hyponatremia Discharge Goals Goal(s): Decrease discomfort, Improve function, Increase independence, Improve disease control, Improve nutritional status, Learn about illness, Diagnostic testing, Therapeutic intervention, Prevent Disease Progression, Specific goals Activity Recommendations Activity Limitations: resume your previous activity . Instructions / Follow-Up Instructions / Follow-Up you have COPD exacerbation and 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 and resp failure will contine Levaquin oral for total 7 days with 4 days more Has been on Solu-Medrol 40 mg IV every 8 hours, is change to prednisone by mouth 40 daily for 7 days more you have hyponatremia, possible related to taking divalproex , labs of tsh, urine/serum osmo sent, pcp please follow up the labs you can use table salt, you need to check BMP , mag in 1 week because of hyponatremia with pcp left upper arm pain with hx of old fracture, you can take tylenol as need for pain - you need to follow up with your primary care physician in 1 week, - take medication as instructed, never overdose or any misuse, or take with alcohol, because misuse of medicine may cause organ damage or , call your primary care physician if have questions of medicaitons. - call your primary care physician OR go to local emergency room if has any fever/chill, chest pain, shortness of breathing, nausea/vomiting/abdominal pain , facial droop/slurry speech/local weakness, or if has any questions. - fall precaution - diet as instructed - you should understand that it is important to follow up the above instruction , and "not following the above instruction" may cause delayed or missed care of your medical conditions which may cause permanent organ damage and even . Current Hospital Diet Patient's current hospital diet: Regular Diet Discharge Diet Recommended Diet: Regular Diet (ok table salt) Pending Studies Studies pending at discharge: no Medical Emergencies . Who to Call and When: Medical Emergencies: If at any time you feel your situation is an emergency, please call 911 immediately. . Non-Emergent Contact Non-Emergency issues call your: Primary Care Provider . . "Provider Documentation" section prepared by Andi Cruz. VTE Core Measure Inpt VTE Proph given/why not?: Enoxaparin (Lovenox)SQ, SCD's
[2016-09-23 10:14] VITALS: BP 98/57; PULSE 67; TEMP 36.7; O2SAT 92
--- NOTE | 2016-09-23 11:38 | Discharge Summary ---
Discharge Summary Date of Service Sep 23, 2016. 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 and resp failure Problems/Secondary Diagnoses: hyponatremia, Immunizations: Have You Had Influenza Vaccine: Unknown History of Tetanus Vaccine?: utd History of Pneumococcal: Unknown History of Hepatitis B Vaccine: Unknown Procedures: No Consultations: No Medication Reconciliation New Medications: Levofloxacin (Levofloxacin) 750 Mg Tab 750 MG PO DAILY@1800 for 4 Days, TAB Magnesium Oxide (Magnesium-Oxide) 400 Mg Tab 400 MG PO BID for 7 Days, #14 TAB Prednisone (Prednisone) 20 Mg Tab 40 MG PO DAILY for 7 Days, #14 TAB Continued Medications: Acetaminophen (Tylenol) 500 Mg Tab 1000 MG PO TID, TAB Calcium Carbonate-Vitamin D (Oscal 500/200 D-3) 1 Tab Tab 1 TAB PO BID Ciclesonide (Alvesco) 160 Mcg/Act Aer 1 PUFF INH BID Divalproex Sodium (Divalproex Sodium Dr) 500 Mg Tabec 1000 MG PO BID Divalproex Sodium (Divalproex Sodium Dr) 250 Mg Tabec 250 MG PO HS TAKE WITH 1000MG = 1250MG HS Docusate Sodium (Docusate Sodium) 100 Mg Cap 1 CAP PO BID, CAP Ferrous Gluconate (Ferrous Gluconate) 324 Mg Tab 324 MG PO BID Ipratropium-Albuterol (Duoneb) 3 Ml Nebu 1 TREATMENT NEB QID PRN for SOB/Wheezing, INHA Nortriptyline (Pamelor) 50 Mg Cap 50 MG PO HS, CAP Omeprazole (Prilosec) 20 Mg Capcr 20 MG PO DAILY, CAP Risperidone (Risperdal) 2 Mg Tab 2 MG PO HS, TAB CRUSH Discharge Exam Was complaining of left arm pain, history of local bone fracture, no limited range of motion, no color changes Review of Systems: Constitutional: No chills, No fatigue, No fever, No problem reported, No sweats, No weakness, No weight loss Eyes: No diplopia, No discharge, No eye pain, No problem reported, No redness, No worsening of vision ENT: No dental problems, No hearing loss, No nasal symptoms, No problem reported, No sore throat, No tinnitus, No trouble swallowing, No unusual epistaxis Respiratory: + shortness of breath (is in baseline) Cardiovascular: No PND, No chest pain, No claudication, No edema, No orthopnea, No palpitations, No problem reported Abdomen: No GI bleeding, No constipation, No diarrhea, No nausea, No pain, No problem reported, No vomiting Musculoskeletal: + joint pain (mild pain in left upper arm), No calf pain, No muscle pain, No problem reported, No swelling Genitourinary - Male: No dysuria, No hematuria, No impotence, No lesions, No penile discharge, No problem reported, No urinary frequency, No urinary hesitancy, No urinary incontinence, No urinary retention, No urinary urgency Neurologic: No balance problems, No memory loss, No numbness/tingling, No paralysis, No problem reported, No vertigo, No weakness Psychiatric: No anhedonism, No anxiety, No depression symptoms, No insomnia , No problem reported, No substance abuse Endocrine: No excessive thirst, No excessive urination, No fatigue, No problem reported Hematologic / Lymphatic: No abnormal bleeding/bruising, No clotting problems , No night sweats, No problem reported, No swollen lymph nodes Integumentary: No bleeding, No color change, No itch, No new/changing skin lesions, No problem reported, No rash Physical Exam: General Appearance: WD/WN, no apparent distress, + thin, + pertinent finding (pleasant) Eyes: normal inspection, PERRL, EOMI ENT: normal ENT inspection, hearing grossly normal Neck: supple, no adenopathy Respiratory/Chest: chest non-tender, normal breath sounds, no respiratory distress, no accessory muscle use, + decreased breath sounds Cardiovascular: regular rate, rhythm, no edema, no gallop, no JVD, no murmur , normal peripheral pulses Abdomen / GI: normal bowel sounds, non tender, soft, no organomegaly, no pulsatile mass Extremities: normal inspection, no calf tenderness, normal capillary refill , no pedal edema, + pertinent finding (left arm mild limited range of motion to raise above head, local has no tender or red, pulse positive and strong) 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, no motor/sensory deficits , alert, normal mood/affect, normal reflexes Skin: normal color, warm/dry Hospital Course 61-year-old admitted on 09/20/2016 because of COPD exacerbation COPD exacerbation with hypoxia and lactic acidosis, stable and improving 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 and resp failure Possible sepsis place on hypoxia and lactic acidosis, respiratory rate up to 26 , systolic blood pressure and 96, Qsafa>2 upon admission, stable and improving, blood culture negative, is approaching to baseline of hypoxic Has been on Ceftriaxone 1 g IV daily, levofloxacin 500 mg IV every 24 hours, will change to Levaquin oral for total 7 days , will continue 4 days small Has been on Solu-Medrol 40 mg IV every 8 hours, will change to prednisone by mouth 40 twice a day, will continue 40 mg by mouth daily for 7 days more History of Seizure disorder continue divalproex 1000 mg by mouth twice a day and 10 mg by mouth at bedtime. Possible chronic hyponatremia, today's worse, she is on Depakote, possible from the side effect of Depakote will, urine and serum osmolality was ordered, TSH was ordered, PCP please follow-up, I told patient he can use some table salt, I recommend to follow-up bmp 1 week PCP History of Bipolar disorder/insomnia continue nortriptyline 50 mg by mouth at bedtime and Risperdal 2 mg by mouth at bedtime. GERD--change omeprazole 20 mg by mouth daily to pantoprazole 40 mg by mouth daily. Constipation: give Colace twice a day GI and DVT prophylaxis Discharge instruction you have COPD exacerbation and 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 and resp failure will contine Levaquin oral for total 7 days with 4 days more Has been on Solu-Medrol 40 mg IV every 8 hours, is change to prednisone by mouth 40 daily for 7 days more you have hyponatremia, possible related to taking divalproex , labs of tsh, urine/serum osmo sent, pcp please follow up the labs you can use table salt, you need to check BMP , mag in 1 week because of hyponatremia with pcp left upper arm pain with hx of old fracture, you can take tylenol as need for pain - you need to follow up with your primary care physician in 1 week, - take medication as instructed, never overdose or any misuse, or take with alcohol, because misuse of medicine may cause organ damage or , call your primary care physician if have questions of medicaitons. - call your primary care physician OR go to local emergency room if has any fever/chill, chest pain, shortness of breathing, nausea/vomiting/abdominal pain , facial droop/slurry speech/local weakness, or if has any questions. - fall precaution - diet as instructed - you should understand that it is important to follow up the above instruction , and "not following the above instruction" may cause delayed or missed care of your medical conditions which may cause permanent organ damage and even . Total Time Spent: Greater than 30 minutes This includes examination of the patient, discharge planning, medication reconciliation, and communication with other providers. Discharge Instructions Please refer to the electronic Patient Visit Report (Discharge Instructions) for additional information. Additional Copies To [facility]
== END 2016-09-23 12:15 | DRG 190 ==
LOC: ENRESERVDT → ENRESERVTM → EDBD 16:46 → C.EDB 16:47 → C.EDINP 19:10 → C.2E 09-21 11:24 → C.MS2W 09-22 16:08
PROVIDERS: ADMIT Hospitalist; ATTEND Hospitalist
DX: J44.1 Chronic obstructive pulmonary disease with (acute) exacerbation (principal); J96.91 Respiratory failure, unspecified with hypoxia; E87.2 Acidosis; E87.1 Hypo-osmolality and hyponatremia; J45.909 Unspecified asthma, uncomplicated; F31.9 Bipolar disorder, unspecified; F17.210 Nicotine dependence, cigarettes, uncomplicated; F17.220 Nicotine dependence, chewing tobacco, uncomplicated; Z79.899 Other long term (current) drug therapy; G40.909 Epilepsy, unspecified, not intractable, without status epilepticus; G47.00 Insomnia, unspecified; K21.9 Gastro-esophageal reflux disease without esophagitis; K59.00 Constipation, unspecified; Z99.81 Dependence on supplemental oxygen